=== PATIENT | male | born 1935 | race Two or more races ===

== ENCOUNTER 2016-08-21 09:29 | Emergency (ER) | payer OTHER ==
[2016-08-21] MEDS ORDERED: COCAINE HCL 4% 4 ML BTL TP ONE ×2 (09:39→11:34)
[2016-08-21] MEDS ORDERED: SILVER NITRATE APPLICATOR 1 APPL TP ONE ×2 (09:55→09:56)
--- NOTE | 2016-08-21 10:00 | UCPHY ---
H & P Time Seen by Provider: 08/21/16 09:45 Patient Type: Established HPI/ROS: HPI Nose bleed. Anticoagulated. 81-year-old male by private vehicle with and daughter. Patient reports spontaneous bleeding from his left nasal cavity ongoing for 2 hours now. Will not stop with pressure. He is on both Eliquis and aspirin. History of atrial fibrillation. Denies any other associated signs or symptoms. No history of trauma. ROS: Constitutional: No fever, no chills. No weakness. No lightheadedness. Eyes: No discharge. No changes in vision. ENT: No sore throat. As above. Respiratory: No cough. No shortness of breath. Cardiac: No chest pain, no palpitations. Gastrointestinal: No abdominal pain, no vomiting, no diarrhea. Neurological: No headache. No focal weakness or altered sensation. Past medical history: Atrial fibrillation. Social history: Here with and daughter. Physical Exam: General Appearance: Alert, no distress. This patient is responding to questions appropriately and in full sentences. This patient appears well- hydrated and well-nourished. Eyes: Pupils equal and round no pallor or injection. No lid edema, erythema or injection. ENT, Mouth: Mucous membranes are moist. Blood in the posterior pharynx. Otherwise, the pharyngeal tissues are unremarkable. No edema or swelling. No asymmetry suggestive of abscess. No erythema or exudates. Bleeding from mid to anterior nasal septum, left nostril. Neurological: Motor sensory function is grossly intact. Cranial nerves are normal. Gait is normal. Skin: Warm and dry, no rashes. Musculoskeletal: Neck is supple and nontender. Extremities are symmetrical. All joints range without pain or impingement. Psychiatric: No agitation. No depression. Database: EKG: Imaging: Procedures: Procedure: Epistaxis control. After verbal consent was obtained, the patient was anesthetized with 4% cocaine soaked cotton pledget which was pushed up into his left nasal canal. The anterior epistaxis was identified. The bleeding was 2 breast for silver nitrate cautery. A 5.5 cm nasal balloon was placed. Following the procedure the patient was re-examined and the bleeding was well controlled. The patient tolerated the procedure well. The procedure was performed by myself. Emergency department course: 10:00 a.m., patient stated that he felt lightheaded. He was transferred to a [facility] and room 2. An IV was placed. He was given 500 cc of IV normal saline. 10:20 a.m., patient re-evaluated. Blood pressure currently 119/85, heart rate 95, pulse oximetry 94% on room air. Patient comfortable. Good hemostasis at this time. 11:00 a.m., patient re-evaluated. He has had excellent hemostasis. He has been eating. He feels comfortable being discharged. He was given 500 mg of Keflex at urgent care. I will prescribe him Keflex for the next 5 days. ENT follow-up was discussed with him for removal of his nasal balloon and further management. Return to emergency department precautions were reviewed with him and family. All of their questions were answered. He was discharged in good condition. Differential Diagnosis: The differential diagnosis on this patient includes but is not limited to anterior epistaxis. Posterior source of bleeding unlikely, significant anemia unlikely. This represents a partial list of diagnoses considered. These considerations are based on history, physical exam, past history, reassessment and diagnostic testing. Smoking Status: Former smoker Constitutional: Initial Vital Signs Heart Rate 87 08/21/16 10:11 Respiratory Rate 16 08/21/16 10:11 Blood Pressure 99/55 L 08/21/16 10:11 O2 Sat (%) 95 08/21/16 10:11 O2 Delivery Mode Room Air Allergies/Adverse Reactions: No Known Allergies Allergy (Unverified 03/27/14 10:00) Home Medications: Medication Instructions Recorded Cephalexin [Keflex (*)] 500 mg PO Q6 5 Days 08/21/16 Medical Decision Making - Data Points Laboratory Results: Laboratory Results 08/21/16 10:13 08/21/16 10:13 WBC 6.62 10^3/uL (3.80-9.50) RBC 4.47 10^6/uL (4.40-6.38) Hgb 13.9 g/dL (13.7-17.5) Hct 40.2 % (40.0-51.0) MCV 89.9 fL (81.5-99.8) MCH 31.1 pg (27.9-34.1) MCHC 34.6 g/dL (32.4-36.7) RDW 14.2 % (11.5-15.2) Plt Count 171 10^3/uL (150-400) MPV 11.2 fL (8.7-11.7) Neut % (Auto) 73.8 % (39.3-74.2) Lymph % (Auto) 17.5 % (15.0-45.0) [place] % (Auto) 6.8 % (4.5-13.0) Eos % (Auto) 0.5 L % (0.6-7.6) Baso % (Auto) 0.9 % (0.3-1.7) Nucleat RBC Rel Count 0.0 % (0.0-0.2) Absolute Neuts (auto) 4.89 10^3/uL (1.70-6.50) Absolute Lymphs (auto) 1.16 10^3/uL (1.00-3.00) Absolute Monos (auto) 0.45 10^3/uL (0.30-0.80) Absolute Eos (auto) 0.03 10^3/uL (0.03-0.40) Absolute Basos (auto) 0.06 10^3/uL (0.02-0.10) Absolute Nucleated RBC 0.00 10^3/uL (0-0.01) Immature Gran % 0.5 % (0.0-1.1) Immature Gran # 0.03 10^3/uL (0.00-0.10) Medications Given: Discontinued Medications Sodium Chloride (Ns) 500 mls @ 0 mls/hr IV ONCE ONE PRN Reason: As Directed Stop: 08/21/16 10:15 Last Admin: 08/21/16 10:32 Dose: 500 mls Departure - Departure Disposition: Home, Routine, Self-Care Clinical Impression: Epistaxis Condition: Good Instructions: Nosebleed (ED) Additional Instructions: Read and follow provided instructions. Follow-up with Dr. Augie Gonzalez or 1 of his partners with [facility] in 3 days, Tuesday, for removal of nasal balloon and re-evaluation. Continue your medications as prescribed Return to the emergency department at [facility] for bleeding unrelieved by nasal pressure greater than 20 minutes, headache, lightheadedness or other serious concerns. Referrals: Alfred Chance MD [Primary Care Provider] - As per Instructions Augie Gonzalez MD [Medical Doctor] - As per Instructions Prescriptions: Cephalexin [Keflex (*)] 500 mg PO Q6 5 Days - PQRS PQRS Measurement: 134: Depression screening and followup, PRIME MD-PHQ2 (12 years and older) Over the last 2 weeks, how often have you been bothered by any of the following problems? 1. Feeling down, depressed, or hopeless? 2. Little interest or pleasure in doing things? Answered no to both questions. 130: Documentation of medications. Reviewed all patient medications, doses, route and frequency. 226: Do you smoke? No. 47: 65 and older: Advanced care planning. Patient designates surrogate decision maker as daughter. 51: 18 years old and older with diagnosis of COPD, spirometry performance. NA 52: 18 years old and older with COPD and symptoms of COPD or FEV1<60% predicted prescribed a B Agonist. NA
[2016-08-21] MEDS ORDERED: NS 500 ML IV ONE (10:14)
[2016-08-21 10:20] LABS: % IMMATURE GRANULYOCYTES 0.5 % (0.0-1.1); ABSOLUTE IMMATURE GRANULOCYTES 0.03 10^3/uL (0.00-0.10); ADD DIFF? NO; ADD MORPH? NO; ADD SCAN? NO; ATYPICAL LYMPHOCYTE FLAG 10 (0-99); FRAGMENT RBC FLAG 0 (0-99); HEMATOCRIT 40.2 % (40.0-51.0); HEMOGLOBIN 13.9 g/dL (13.7-17.5); LEFT SHIFT FLG 10 (0-99); LIPEMIA HEMOLYSIS FLAG 90 (0-99); MEAN CELL HEMOGLOBIN 31.1 pg (27.9-34.1); MEAN CELL HEMOGLOBIN CONCENTR. 34.6 g/dL (32.4-36.7); MEAN CELL VOLUME 89.9 fL (81.5-99.8); MEAN PLATELET VOLUME 11.2 fL (8.7-11.7); PLATELET CLUMPS FLAG 0 (0-99); PLATELET COUNT 171 10^3/uL (150-400); RED BLOOD CELL COUNT 4.47 10^6/uL (4.40-6.38); RED CELL DISTRIBUTION WIDTH 14.2 % (11.5-15.2)
[2016-08-21 10:32] VITALS: RESP 16; TEMP 98.2
[2016-08-21] MEDS ORDERED: CEPHALEXIN 500 MG CAP PO ONE (11:03)
[2016-08-21 11:06] VITALS: PULSE 97
[2016-08-21 11:26] VITALS: BP 129/73; O2SAT 95
== END 2016-08-21 11:20 | disposition home or self-care (01) ==
LOC: CED 09:29
PROC: 2Y41X5Z Packing of Nasal Region using Packing Material (ICD-10-PCS; principal; 2016-08-21)
DX: R04.0 Epistaxis (principal); Z79.01 Long term (current) use of anticoagulants; Z79.82 Long term (current) use of aspirin
CPT/HCPCS: 30901-PO; 85025-PO; 96360-PO; 99214-PO; G0463-PO

== ENCOUNTER 2017-07-27 19:59 | Emergency (ER) | payer OTHER ==
[2017-07-27] MEDS ORDERED: OXYMETAZOLINE 30 ML NASAL SPRAY ONE (20:09)
--- NOTE | 2017-07-27 20:11 | EDPHY ---
H & P Time Seen by Provider: 07/27/17 20:07 HPI/ROS: CHIEF COMPLAINT: Nosebleed HISTORY OF PRESENT ILLNESS: The patient is an 81-year-old man who comes to the emergency department complaining of nose bleed that began about 0.5 hr ago as he was using a Neti pot. He takes warfarin for a history of atrial fibrillation. He has not yet taken his dose this evening. He had his INR checked today is 2.4 which is appropriate. He denies any recent fevers infections or trauma. He does not feel lightheaded and dizzy. He placed a nasal packing in the bleeding seems to be controlled. REVIEW OF SYSTEMS: Constitutional: denies: chills, fever, recent illness, recent injury EENTM: Epistaxis Respiratory: denies: cough, shortness of breath Cardiac: denies: chest pain, irregular heart rate, lightheadedness, palpitations Gastrointestinal/Abdominal: denies: abdominal pain, diarrhea, nausea, vomiting, blood streaked stools Genitourinary: denies: dysuria, frequency, hematuria, pain Musculoskeletal: denies: joint pain, muscle pain Skin: denies: lesions, rash, jaundice, bruising Neurological: denies: headache, numbness, paresthesia, tingling, dizziness, weakness Hematologic/Lymphatic: denies: blood clots, easy bleeding, easy bruising Immunologic/allergic: denies: HIV/AIDS, transplant EXAM: GENERAL: Well-appearing, well-nourished and in no acute distress. HEAD: Atraumatic, normocephalic. EYES: Pupils equal round and reactive to light, extraocular movements intact, sclera anicteric, conjunctiva are normal. ENT: Epistaxis right naris, septum anteriorly NECK: Normal range of motion, supple without lymphadenopathy or JVD. LUNGS: Breath sounds clear to auscultation bilaterally and equal. No wheezes rales or rhonchi. HEART: Regular rate and rhythm without murmurs, rubs or gallops. ABDOMEN: Soft, nontender, normoactive bowel sounds. No guarding, no rebound. No masses appreciated. BACK: No CVA tenderness, no spinal tenderness, step-offs or deformities EXTREMITIES: Normal range of motion, no pitting or edema. No clubbing or cyanosis. NEUROLOGICAL: Cranial nerves II through XII grossly intact. Normal speech, normal gait. 5/5 strength, normal movement in all extremities, normal sensation PSYCH: Normal mood, normal affect. SKIN: Warm, dry, normal turgor, no visible rashes or lesions. Source: Patient, Family Exam Limitations: No limitations - Personal History Tetanus Vaccine Date: < 10 YEARS - Medical/Surgical History Hx Asthma: No Hx Chronic Respiratory Disease: No Hx Diabetes: No Hx Cardiac Disease: Yes Hx Renal Disease: No Hx Cirrhosis: No Hx Alcoholism: No Hx HIV/AIDS: No Hx Splenectomy or Spleen Trauma: No Other PMH: Atrial fibrillation, partial rupt lumbar disc, 2 torn rotator discs. double compound fx lleg, dislocated wrist, l inguinal hernia repair - Family History Significant Family History: No pertinent family hx - Social History Smoking Status: Former smoker Alcohol Use: Sober Constitutional: Initial Vital Signs Heart Rate 84 07/27/17 20:18 Respiratory Rate 20 07/27/17 20:18 Blood Pressure 138/85 H 07/27/17 20:18 O2 Sat (%) 95 07/27/17 20:18 O2 Delivery Mode Room Air Allergies/Adverse Reactions: No Known Allergies Allergy (Unverified 07/27/17 20:17) Home Medications: Medication Instructions Recorded Warfarin Sodium [Coumadin 5MG (*)] 5 mg PO DAILY16 07/27/17 Medical Decision Making Procedures: Both nares cleared with blowing and then instilled with Afrin and clamped with a clamp. Bleeding significantly improved. The right nares was then packed with 2 cotton ball soaked in Afrin. Hemostasis is obtained. ED Course/Re-evaluation: 9:00 p.m. the patient's bleeding has stopped. He is happy with this. I instructed him to leave the cotton balls in place for 24 hr. He will not need antibiotics with it in place for less than 48 hr. He will remove them at home. He will take Afrin and the clamp home with him and instructed him to use this if his bleeding starts again and this does not control the bleeding to return to the emergency department. The patient understands and agrees with this plan. He declines further workup or testing at this time. Differential Diagnosis: Partial list of the Differential diagnosis considered include but were not limited to; anterior epistaxis, posterior epistaxis and although unlikely based on the history and physical exam, I also considered trauma, infection. I discussed these differential diagnoses and the plan with the patient as well as the usual and expected course. The patient understands that the diagnosis is provisional and that in medicine we are not always correct and that further workup is often warranted. Usual and customary warnings were given. All of the patient's questions were answered. The patient was instructed to return to the emergency department should the symptoms at all worsen or return, otherwise to followup with the physician as we discussed. - Data Points Medications Given: Discontinued Medications Oxymetazoline HCl (Afrin Nasal [place]) 2 sprays [facility]ACHNARE EDNOW ONE Stop: 07/27/17 20:22 Last Admin: 07/27/17 20:16 Dose: 2 sprays Departure - Departure Disposition: Home, Routine, Self-Care Clinical Impression: Acute anterior epistaxis Condition: Fair Instructions: Nosebleed (ED) Referrals: Alfred Chance MD [Primary Care Provider] - As per Instructions
[2017-07-27] MEDS ORDERED: OXYMETAZOLINE 30 ML NASAL SPRAY EACHNARE ONE (20:21)
[2017-07-27 21:05] VITALS: BP 132/68; PULSE 76; RESP 18; O2SAT 94
== END 2017-07-27 21:15 | disposition home or self-care (01) ==
LOC: CED 19:59
DX: R04.0 Epistaxis (principal); Z79.01 Long term (current) use of anticoagulants; Z87.891 Personal history of nicotine dependence

== ENCOUNTER → 2017-08-02 | Outpatient (CLI) | payer OTHER | LOC: CIMAGING 09:15 | PROVIDERS: ATTEND Family Medicine | DX: H57.11 Ocular pain, right eye (principal) | CPT/HCPCS: 70150-PO ==

== ENCOUNTER → 2018-11-14 | Outpatient (CLI) | payer OTHER | LOC: EMCIMAGING 08:54 | PROVIDERS: ATTEND Family Medicine | DX: M85.88 Other specified disorders of bone density and structure, other site (principal); Z79.01 Long term (current) use of anticoagulants | CPT/HCPCS: 77080-PN ==